=== PATIENT | male | born 1950 | race African-American/Black ===

== ENCOUNTER 2020-07-07 16:36 | Emergency (ER) | payer MEDICARE, SELFPAY ==
[2020-07-07 16:42] VITALS: BP 157/72; PULSE 43; RESP 16; TEMP 36.1; O2SAT 100
--- NOTE | 2020-07-07 16:58 | ED.CHESTPAIN ---
HPI - Chest Pain General Chief Complaint: Chest Pain Stated Complaint: chest pain Source: patient Mode of arrival: ambulatory Limitations: no limitations History of Present Illness HPI narrative: Patient is a 70-year-old male who presents complaining of intermittent chest pain over the past week. Reports episode yesterday evening and took a couple aspirin and pain subsided. Patient reports pain is stabbing in in nature and occurs in central chest. Denies pain at this time. Denies shortness of breath. Patient reports a history of hypertension, diabetes and hyperlipidemia. Patient denies swelling to extremities. Patient reports medication compliant. MD complaint: chest pain Related Data Home Medications Medication Instructions Recorded Confirmed atorvastatin 40 mg PO DAILY 07/07/20 07/07/20 glimepiride 4 mg PO DAILY 07/07/20 07/07/20 metformin 500 mg PO TID 07/07/20 07/07/20 olmesartan-hydrochlorothiazide 1 tablet PO DAILY 07/07/20 07/07/20 sitagliptin [Januvia] 100 mg PO DAILY 07/07/20 07/07/20 Allergies Allergy/AdvReac Type Severity Reaction Status Date / Time No Known Allergies Allergy Verified 07/07/20 16:47 Review of Systems Review of Systems: Narrative: CONSTITUTIONAL: Denies fever, chills, or sweats. EYES: Denies visual changes, redness, or discharge. ENT: Denies rhinorrhea, congestion, sore throat, or otalgia. CARDIOVASCULAR: Denies chest pain, palpitations, or edema. RESPIRATORY: Denies cough or dyspnea. GASTROINTESTINAL: Denies abdominal pain, nausea, vomiting, or diarrhea. GENITOURINARY: Denies dysuria or hematuria. SKIN: Denies rash or itching. MUSCULOSKELETAL: Denies back pain, joint pain, or myalgia. NEUROLOGIC: Denies headache, numbness, dizziness, or weakness. PSYCHIATRIC: Denies anxiety or depression. PMFSH Past Medical History Medical History Diabetes HTN (hypertension) Hyperlipidemia Social History Social History Smoking status: Never smoker Alcohol intake: never Substance use: never Living arrangements: with family Occupation/Education: retired Exam Narrative: Exam Narrative: GENERAL: Well-appearing, well-nourished, and in no acute distress. HEAD: Normocephalic, atraumatic. EYES: EOMI. No redness or drainage. Conjunctiva are normal. ENT: Mucous membranes pink and moist. CHEST: No respiratory distress. Clear to auscultation. HEART: Initial bradycardia, current regular rate. No murmur appreciated. Normal peripheral pulses. EXTREMITIES: Normal range of motion. No edema. SKIN: Warm, dry, no rash. NEURO: No focal deficits. Alert and oriented x3. Gait steady. PSYCH: Normal affect. No signs of depression or anxiety. Course Vital Signs Vital signs: Vital Signs Temperature 36.1 C L 07/07/20 16:42 Pulse Rate 43 L 07/07/20 16:42 Respiratory Rate 16 07/07/20 16:42 Blood Pressure 157/72 H 07/07/20 16:42 Pulse Oximetry 100 07/07/20 16:42 Temperature 36.1 C L 07/07/20 16:42 Pulse Rate 43 L 07/07/20 16:42 Respiratory Rate 16 07/07/20 16:42 Blood Pressure 157/72 H 07/07/20 16:42 Pulse Oximetry 100 07/07/20 16:42 Reviewed. Patient has been instructed to follow-up with his PCP regarding his blood pressure. Transfer Transfered to: [facility]: [facility] Transfer rationale: Higher level of care Accepting physician: Dr. Garcia Transfer comments: Transferred by EMS. MDM - Chest Pain MDM Narrative Medical decision making narrative: Patient to [facility] at this time for further evaluation and diagnostic testing. Report called. Patient to be transported by EMS. in parking lot and aware and will follow to [facility]. Patient is stable for transfer at this time by [facility] ambulance. Differential Diagnosis Differential diagnosis: Likely stable angina, unstable angina pectoris, atypical chest pain and chest pain Critical Ca
--- NOTE | 2020-07-07 17:10 | ECG_ITS ---
Measurements Intervals [place] Rate: 82 P: 46 RI: 172 QRS: -51 QRSD: 115 T: 17 QT: 378 QTc: 444 Interpretive Statements SINUS RHYTHM VENTRICULAR BIGEMINY LEFT ANTERIOR FASCICULAR BLOCK POSSIBLE LEFT VENTRICULAR HYPERTROPHY BASELINE ARTIFACT- I ABNORMAL ECG Electronically Signed On 07-07-2020 20:05:28 [employer]ELOPER [employer] by Taco Patterson D.O.
== END 2020-07-07 17:07 | disposition short-term general hospital (02) ==
PROVIDERS: Emergency Provider Nurse Practitioner; PCP Internal Medicine Endocrinology, Diabetes & Metabolism
DX: R07.9 Chest pain, unspecified (principal); I44.4 Left anterior fascicular block; E11.9 Type 2 diabetes mellitus without complications; I10 Essential (primary) hypertension; E78.5 Hyperlipidemia, unspecified
CPT/HCPCS: 93005; 99215; G0463

== ENCOUNTER 2020-07-07 17:31 | Observation (INO) | payer MEDICARE, SELFPAY ==
[2020-07-07] VITALS (8 sets, daily range): BP systolic 140–154; BP diastolic 73–100; PULSE 75–97; RESP 16–18; TEMP 36.4–36.8; O2SAT 98–100; BMI 33.7
--- NOTE | ~2020-07-07 | XR_ITS ---
XR chest 1V portable DATE: 07/07/2020 18:08 INDICATION: Right-sided chest pain. History of hypertension. TECHNIQUE: Portable upright AP chest on 07/17/2020 at 1810 hours COMPARISON: None FINDINGS: There is minimal atelectasis at the lung bases; otherwise no pulmonary infiltrate or consol idation, pleural effusion or pulmonary vascular congestion or pneumothorax is detected. Heart size is normal. No hilar or mediastinal enlargement. Degenerative spurring of the thoracic spine. IMPRESSION: Minimal atelectasis at the lung bases Reviewed, dictated and finalized at location A. [employer]K [employer]OL [employer]PERVISOR
--- NOTE | 2020-07-07 17:37 | ECG_ITS ---
Measurements Intervals [place] Rate: 84 P: 51 [place]: 197 QRS: -54 QRSD: 117 T: 31 QT: 384 QTc: 454 Interpretive Statements SINUS RHYTHM FREQUENT VENTRICULAR PREMATURE COMPLEXES LEFT ANTERIOR FASCICULAR BLOCK VOLTAGE CRITERIA FOR LVH ABNORMAL ECG Electronically Signed On 07-08-2020 7:35:08 MEDIA ASSOCIATE by Taco Patterson D.O.
--- NOTE | 2020-07-07 17:41 | ED.CHESTPAIN ---
HPI - Chest Pain General Chief Complaint: Chest Pain Stated Complaint: cp Source: RN notes reviewed History of Present Illness HPI narrative: Patient presents to emergency department via EMS from urgent care for chest pain. Patient states he had episode of chest pain yesterday that was midsternal in nature and did not radiate. Describes a pressure at that time. Patient states that he had taken an aspirin and the pain subsided he states today at work again he had an episode of chest pain in the same region. States the pain is gone at this time. He gone to an urgent care for for evaluation and was transferred to the ED for further evaluation. He denies any shortness of breath abdominal pain nausea vomiting or any other symptoms. Denies any previous cardiac history patient was given aspirin at the urgent care prior to arrival Related Data Home Medications Medication Instructions Recorded Confirmed atorvastatin 40 mg PO DAILY 07/07/20 07/07/20 glimepiride 4 mg PO DAILY 07/07/20 07/07/20 metformin 500 mg PO TID 07/07/20 07/07/20 olmesartan-hydrochlorothiazide 1 tablet PO DAILY 07/07/20 07/07/20 sitagliptin [Januvia] 100 mg PO DAILY 07/07/20 07/07/20 Allergies Allergy/AdvReac Type Severity Reaction Status Date / Time No Known Allergies Allergy Verified 07/07/20 16:47 Review of Systems Review of Systems: Narrative: Gen.: Denies fevers or chills ENT: Denies congestion Respiratory: Denies shortness of breath or cough CV: See HPI GI: Denies abdominal pain nausea, emesis or diarrhea denies burning, urgency, frequency or hematuria Musculoskeletal: Denies back pain or muscle pain Neuro: Denies numbness, tingling, weakness or focal weakness Skin: Denies rash Except as documented, all other systems reviewed and negative [facility] Past Medical History Medical History Diabetes HTN (hypertension) Hyperlipidemia Social History Social History Smoking status: Never smoker Alcohol intake: never Substance use: never Exam Narrative: Exam Narrative: APPEARANCE: No acute distress, nontoxic, resting in bed EYES: EOMI HEENT: Normocephalic, atraumatic, OMM RESPIRATORY: No respiratory distress Clear to auscultation bilaterally with no rhonchi wheezing or rales. CARDIOVASCULAR: Regular rate and rhythm without murmurs rubs or gallops. ABDOMINAL: Soft, nontender, nondistended, no rebound or guarding MUSCULOSKELETAl: Moves all extremities. No clubbing, cyanosis or edema. NEURO: Awake and alert. Following commands, speech normal, no focal deficits SKIN:: Warm, dry. No rashes lesions or abrasions PSYCHIATRIC: Normal affect/mood, Course Course Emergency Course: Patient has had no further chest pain in the ED Discussed Dr Montes presentation work-up. Agrees with consult this time. Recommends admission to the hospital service Discussed with Dr. Erazo presentation work-up agrees admission at this time Discussed with patient and family results of workup and diagnosis. Discussed need for admission. Patient and family understand and agree to current treatment plan Vital Signs Vital signs: Vital Signs Pulse Rate 82 07/07/20 17:40 Respiratory Rate 17 07/07/20 17:40 Blood Pressure 154/100 H 07/07/20 17:40 Pulse Oximetry 100 07/07/20 17:40 Temperature 98.2 F 07/07/20 18:09 Pulse Rate 80 07/07/20 18:49 Respiratory Rate 16 07/07/20 18:49 Blood Pressure 154/100 H 07/07/20 18:49 Pulse Oximetry 98 07/07/20 18:49 MDM - Chest Pain Lab Data Result diagrams: 07/07/20 17:49 07/07/20 17:49 Labs: Lab Results 07/07/20 07/07/20 07/07/20 Range/Units 17:49 17:49 17:49 WBC 4.8 (4.5-10.0) K/mm3 RBC 4.55 L (4.6-6.20) M/mm3 Hgb 11.4 L (14.0-18.0) g/dL Hct 36.4 L (42.0-52.0) % MCV 80.0 (80-100) fl MCH 25.1 L (26-34) pg MCHC 31.3 L
[2020-07-07 17:57] LABS: Basophils Percent Auto 0.8 % (0.2-1.2); Eosinophils Absolute Auto 0.2 K/mm3 (0-0.3); Eosinophils Percent Auto 3.1 % (0-4.4); Hematocrit 36.4 % (42.0-52.0); Hemoglobin 11.4 g/dL (14.0-18.0); Immature Granulocyte Absolute 0.01 K/mm3 (0.00-0.031); Immature Granulocyte Percent A 0.2 % (0-0.5); Lymphocytes Absolute Auto 1.69 K/mm3 (0.9-3.2); Lymphocytes Percent Auto 35.3 % (18.3-44.2); Mean Corpuscular HGB Conc 31.3 g/dl (32-36); Mean Corpuscular Hemoglobin 25.1 pg (26-34); Mean Platelet Volume 10.4 fl (7.4-10.4); Monocytes Absolute Auto 0.5 K/mm3 (0.1-0.6); Monocytes Percent Auto 10.9 % (2.6-8.5); Neutrophils Absolute Auto 2.4 K/mm3 (1.3-6.7); Neutrophils Percent Auto 49.7 % (45.5-73.1); Platelet Count Result 235 k/mm3 (150-375); Red Blood Count 4.55 M/mm3 (4.6-6.20); White Blood Count 4.8 K/mm3 (4.5-10.0)
[2020-07-07 18:08] LABS: Partial Thromboplastin Time 27.1 SECONDS (22.3-36.8)
[2020-07-07 18:10] LABS: Alanine Aminotransferase 19 U/L (4-50); Albumin Level 4.1 g/dL (3.5-5.1); Alkaline Phosphatase 76 U/L (38-126); Anion Gap 8 mmol/L (8-16); Aspartate Amino Transferase 26 U/L (17-59); Bilirubin,Total 0.3 mg/dL (0.2-1.3); Blood Urea Nitrogen 23 mg/dL (9-20); Calcium 9.7 mg/dL (8.4-10.2); Carbon Dioxide 28 mmol/L (22-30); Chloride 103 mmol/L (98-107); Estimated Glomerular Filt Rate > 60; Glucose 157 mg/dL (75-110); Lipase 181 U/L (23-300); Sodium 139 mmol/L (137-145)
[2020-07-07 18:12] LABS: INR 0.9; Prothrombin Time 12.4 Seconds (11.1-14.7)
[2020-07-07 18:22] LABS: Troponin I 0.013 ng/mL (0.000-0.034)
[2020-07-07 21:03] LABS: Troponin I 0.016 ng/mL (0.000-0.034)
--- NOTE | 2020-07-07 21:49 | PM.IMHP ---
H&P: HPI History of Present Illness Date/Time: 07/07/20 21:49 Chief complaint: chest pain, PVC Narrative: This is a pleasant Diabetic 70 year old male with known history of HTN and hyperlipidemia who presented to the hospital with a complaint of intermittent right sided chest pain since yesterday. Yesterday he was sitting when he started to have sharp right sided chest pain that lasted only about 10 minutes in duration. Today he ate tuna fish and approximately 30 minutes later he began to have the same right sided chest pain while he was watching television. His chest pain did not radiate anywhere and lasted approximately 5 minutes in duration. The patient is not known to have any history of coronary artery disease. He also denies any fevers, chills, nausea, shortness of breath or diaphoresis. The patient was evaluated in the ER and routine labs were obtained. Troponin has been negative x 2 and EKG demonstrated Bigeminy which is new to the patient. Electrolytes appear within normal limits. ER provider has consulted Cardiology, Dr. Khan who has asked that we admit the patient and he will evaluate him tomorrow. The patient has not had any recurrence of chest pain and has no other complaints at this time. Review of Systems Review of Systems: All systems reviewed & are unremarkable except as noted in HPI and below PMFSH Past Medical History Medical History Diabetes HTN (hypertension) Hyperlipidemia Family History Family History Other Acute myocardial infarction Social History Social History Smoking status: Never smoker Alcohol intake: never Substance use: never Comments History of left ankle surgery after a fracture. Meds Home Medications and Allergies Home Medications Medication Instructions Recorded Confirmed Type aspirin [Adult Low Dose Aspirin] 81 mg PO DAILY 07/07/20 07/07/20 History atorvastatin 40 mg PO DAILY 07/07/20 07/07/20 History glimepiride 4 mg PO DAILY 07/07/20 07/07/20 History metformin 500 mg PO TID 07/07/20 07/07/20 History olmesartan-hydrochlorothiazide 1 tablet PO DAILY 07/07/20 07/07/20 History sitagliptin [Januvia] 100 mg PO DAILY 07/07/20 07/07/20 History Allergies Allergy/AdvReac Type Severity Reaction Status Date / Time No Known Allergies Allergy Verified 07/07/20 16:47 Vital Signs Vital Signs - 24 hr 07/07/20 17:40 07/07/20 18:09 07/07/20 18:49 Temperature 36.8 C Pulse Rate 82 75 80 Respiratory Rate 17 18 16 Blood Pressure 154/100 H 154/100 H Pulse Oximetry 100 98 98 07/07/20 20:55 07/07/20 21:20 Temperature 36.4 C Pulse Rate 80 97 Respiratory Rate 18 18 Blood Pressure 143/73 H Pulse Oximetry 98 100 Exam Const: General: cooperative, no acute distress, alert and awake Nutritional Appearance: obese morbidly obese Orientation/consciousness: patient oriented x3 HENMT: Head: normal to inspection General nose exam: Normal external nose present Face and sinus: normal facial exam Mouth: Yes Normal oral and palatal mucosa present and Yes oropharynx normal Eyes: Pupils: Equal, round and reactive pupils present EOM: EOMs intact bilaterally Neck: Neck: supple and no JVD Thyroid: thyroid normal Lymphatic: lymphadenopathy not noted Resp: Effort & Inspection: normal respiratory effort Auscultation: clear to auscultation bilaterally Cardio: Rate: regular rate Rhythm: regular rhythm Heart sounds: no murmurs GI: Inspection: normal to inspection Auscultation: normal bowel sounds Skin: General skin exam: normal color and no rashes or lesions noted Neuro: General: patient oriented x3 Cranial nerves: Yes CN's II-XII intact bilaterally and Yes Equal, round and reactive pupils present Speech: normal speech Motor exam (neuro): 5/5 motor strength present throughout Sensory Exam
--- NOTE | 2020-07-07 21:59 | ADMGEN ---
This patient, Yimi Ramires, was admitted to IMU Room 213-01. Patient/family oriented to hospital policies and general routines including ID bracelet, bed and alarms, visiting hours, pain management, procedures, bathroom and other care routines, personal items, smoking policy, room service/diet, and visiting hours. Information on how to activate the Rapid Response Team has been discussed. Patient/Family are encouraged to report perceived risks to care and to ask questions if they do not understand what they are told or what they should do.
[2020-07-08 00:09] LABS: Troponin I 0.015 ng/mL (0.000-0.034)
[2020-07-08 02:00] VITALS: PULSE 78
[2020-07-08 04:00] VITALS: BP 135/78; PULSE 79; PULSE 89; RESP 20; TEMP 36.5; O2SAT 97
[2020-07-08 04:59] LABS: Basophils Percent Auto 0.5 % (0.2-1.2); Eosinophils Absolute Auto 0.2 K/mm3 (0-0.3); Hematocrit 33.1 % (42.0-52.0); Hemoglobin 10.2 g/dL (14.0-18.0); Immature Granulocyte Absolute 0.01 K/mm3 (0.00-0.031); Immature Granulocyte Percent A 0.2 % (0-0.5); Lymphocytes Percent Auto 30.4 % (18.3-44.2); Mean Corpuscular HGB Conc 30.8 g/dl (32-36); Mean Corpuscular Hemoglobin 24.8 pg (26-34); Mean Corpuscular Volume 80.5 fl (80-100); Mean Platelet Volume 10.3 fl (7.4-10.4); Monocytes Absolute Auto 0.5 K/mm3 (0.1-0.6); Monocytes Percent Auto 11.2 % (2.6-8.5); Neutrophils Absolute Auto 2.3 K/mm3 (1.3-6.7); Neutrophils Percent Auto 53.7 % (45.5-73.1); Platelet Count Result 203 k/mm3 (150-375); Red Blood Count 4.11 M/mm3 (4.6-6.20); Red Cell Distribution Width 16.8 % (11.5-14.5); White Blood Count 4.3 K/mm3 (4.5-10.0)
[2020-07-08 05:15] LABS: Anion Gap 5 mmol/L (8-16); Blood Urea Nitrogen 19 mg/dL (9-20); Calcium 8.8 mg/dL (8.4-10.2); Carbon Dioxide 29 mmol/L (22-30); Chloride 105 mmol/L (98-107); Cholesterol 137 mg/dL (0-200); Estimated CRCL calculation 68 ml/min; Estimated Glomerular Filt Rate > 60; Glucose 121 mg/dL (75-110); HDL Direct 24 mg/dL; Potassium 3.9 mmol/L (3.4-5.0); Sodium 139 mmol/L (137-145); Triglycerides 119 mg/dL (<150)
[2020-07-08 05:26] LABS: LDL Cholesterol Direct 66 mg/dL
[2020-07-08 06:00] VITALS: PULSE 81
[2020-07-08 07:27] VITALS: BP 128/77; PULSE 76; RESP 18; TEMP 36.6; O2SAT 99
[2020-07-08 08:00] VITALS: PULSE 76; PULSE 86; RESP 18; O2SAT 99
--- NOTE | 2020-07-08 09:10 | PM.CNCAR ---
Assessment and Plan Assessment and plan (1) Chest pain: Qualifiers: Chest pain type: unspecified Qualified Code(s): R07.9 - Chest pain, unspecified Code(s): R07.9 - Chest pain, unspecified Status: Acute Assessment and Plan: 70 y/o with no known cardiac history but multiple cardiovascular risk factors who presents with chest pain Chest pain is atypical for angina He ruled out for LA with negative trop and EKG that shows no ischemic changes (frequent PVCs noted) Given risk factors he will benefit from stress test for risk stratification. Will arrange for that in outpatient settings He is stable for discharge from cardiac standpoint. (2) Frequent unifocal PVCs: Code(s): I49.3 - Ventricular premature depolarization Status: Acute Assessment and Plan: He is asymptomatic from PVCs. Electrolytes within normal limits (K 4.0, Mg 2.0). Check TSH if not done recently. Check 2D echo to rule out structural heart disease. That also can be arrange in outpatient settings per patient wishes (concerned about staying in the hospital during pandemic) (3) HTN (hypertension): Qualifiers: Hypertension type: unspecified Qualified Code(s): I10 - Essential (primary) hypertension Code(s): I10 - Essential (primary) hypertension Status: Chronic Assessment and Plan: Well controlled (4) Diabetes: Qualifiers: Diabetes mellitus type: type 2 Diabetes mellitus detention insulin use: without detention use Diabetes mellitus complication status: without complication Qualified Code(s): E11.9 - Type 2 diabetes mellitus without complications Code(s): E11.9 - Type 2 diabetes mellitus without complications Status: Chronic History of Present Illness History of Present Illness Consult date/time: 07/08/20 09:10 70 y/o male with no known cardiac history however multiple cardiovascular risk factors including HTN, DM (since ~2002) and HLD who presented with chest pain He had 2 episodes of chest pain, one on Tuesday, right side of chest with no radiation, sharp,happened while sitting watching TV, lasted for 10 minutes then another similar episode yesterday around 4:00 pm, also non exertional and lasted for 5 minutes. Both episode happened after he had eaten (canned tuna). No associated dyspnea, nausea, diaphoresis or dizziness. EKG shows sinus rhythm with frequent PVCs, occasionally in Bigeminy or trigeminy Trop negative 0.01 X 3. other labs shows LDL 66. Cr 1.0 Never smoker. Denies alcohol use Reason For Visit: chest pain, PVC Review of Systems Review of Systems: All systems reviewed & are unremarkable except as noted in HPI and below Constitutional: Constitutional: Denies fatigue and Denies headache(s) Eyes: Eyes: Denies blurry vision ENT: Reports Normal hearing present and Denies headache(s) Cardiovascular: Cardiovascular: Denies chest pain, Denies diaphoresis, Denies pedal edema, Denies leg edema, Denies lightheadedness, Denies palpitations and Denies dyspnea Respiratory: Respiratory: Denies cough and Denies dyspnea Gastrointestinal: Gastrointestinal: Denies abdominal pain Musculoskeletal: Musculoskeletal: Denies back pain Neurologic: Reports Normal hearing present and Denies headache(s) Psychiatric: Psychiatric: Denies anxiety Endocrine: Endocrine: Denies fatigue and Denies palpitations PMFSH Past Medical History Medical History Diabetes HTN (hypertension) Hyperlipidemia Family History Family History Other Acute myocardial infarction Social History Social History Smoking status: Never smoker Alcohol intake: never Substance use: never Substance use type: does not use Spiritual care concerns: No Meds Home Medications and Allergies Home Medications M
[2020-07-08] MEDS: ASPIRIN 81 MG ENTERIC TABLET PO (09:42)
[2020-07-08] MEDS: ATORVASTATIN 40 MG TABLET PO (09:42)
[2020-07-08] MEDS: OLMESARTAN MEDOXOMIL 20 MG TABLET 40 MG PO (09:43)
[2020-07-08] MEDS: hydroCHLOROthiazide 25 MG TABLET PO (09:43)
--- NOTE | 2020-07-08 10:02 | PM.DS ---
DS: Admitting Diagnosis Admitting Diagnosis Admitting Diagnosis: chest pain, PVC DS: Discharge Diagnosis Discharge Diagnosis (1) Chest pain: Qualifiers: Chest pain type: unspecified Qualified Code(s): R07.9 - Chest pain, unspecified Code(s): R07.9 - Chest pain, unspecified Status: Acute Assessment and Plan: Patient had atypical CP. He was admitted for observation. CXR showing minimal atelectasis in the lung bases. EKG showing LVH, LAFB and vent bigeminy. Trop negative x3. Cardiology consulted. Patient monitored overnight on telemetry. No further CP. He was NPO overnight. Sesarmary concerned about prolonged stay and exposure to COVID. Discussed with cardiology who as already planned for patient to be discharged for further workup as outpatient. Luca agreeable with this plan. He was advised to return to the ED or call cardiologists office if having any further chest pain or other concerns. He voices understanding. Spoke with patient afterwards and explained that it is safe to contiue his ASA. (2) Normocytic anemia: Code(s): D64.9 - Anemia, unspecified Status: Acute Assessment and Plan: Hgb 11.4 on admission and dropped to 10.2. Acute versus chronic anemia. No signs of acute blood loss. Will have patient follow up with PCP for further evaluation and treatment. (3) Diabetes: Qualifiers: Diabetes mellitus complication status: without complication Diabetes mellitus leveler helper insulin use: without leveler helper use Diabetes mellitus type: type 2 Qualified Code(s): E11.9 - Type 2 diabetes mellitus without complications Code(s): E11.9 - Type 2 diabetes mellitus without complications Status: Chronic Assessment and Plan: Glucose remained well controlled. We monitored with Accu-Cheks and sliding scale insulin coverage. Hypoglycemia protocol was available as needed. Last A1c 6.9. (4) HTN (hypertension): Qualifiers: Hypertension type: unspecified Qualified Code(s): I10 - Essential (primary) hypertension Code(s): I10 - Essential (primary) hypertension Status: Chronic Assessment and Plan: BP elevated on admission to 154/100 but better now. We continued Olmesartan/hydrochlorothiazide. (5) Hyperlipidemia: Qualifiers: Hyperlipidemia type: unspecified Qualified Code(s): E78.5 - Hyperlipidemia, unspecified Code(s): E78.5 - Hyperlipidemia, unspecified Status: Chronic Assessment and Plan: LFTs normal. LDL 66. We continued atorvastatin. DS: Summary Hospital Course Reason for hospitalization: 70yo male with DM, HTN and HLD here for atypical CP. Please se H&P for details. Hospital Course: As above. Status at Discharge Cognitive/behavioral status at discharge: PATIENT IS CLINICALLY STABLE Time Spent with Patient Time attestation: Total time spent providing and/or coordinating discharge services: 32 minutes Time spent: Greater than 30 minutes Exam Narrative: Exam Narrative: AF 97.8 128/77 76 18 99% ra Gen - NARD Chest - CTA bilaterally, nml RR CV - RRR S1/S2; Tele bigeminy Abd - Soft, NT/ND, Positive BS Ext - No pedal edema, 2+ PT Psych - Nml mood and affect Skin - Warm and dry DS: Data Data Completed and Pending Labs on day of discharge: Labs from last 24 hours 07/08/20 07/08/20 07/07/20 04:38 04:38 22:58 WBC 4.3 L RBC 4.11 L Hgb 10.2 L Hct 33.1 L MCV 80.5 MCH 24.8 L MCHC 30.8 L RDW 16.8 H Plt Count 203 MPV 10.3 Immature Gran % (Auto) 0.2 Neut % (Auto) 53.7 Lymph % (Auto) 30.4 Clare % (Auto) 11.2 H Eos % (Auto) 4.0 Baso % (Auto) 0.5 Lymph # (Auto) 1.30 [place] # (Auto) 0.5 Eos # (Auto) 0.2 Baso # (Auto) 0.0 Abs Immat Gran (auto) 0.01 Absolute Neuts (auto) 2.3 Absolute Nucleated RBC 0.0 Nucleated RBC % 0.0 PT INR APTT Sodium 139 Potassium 3.9
== END 2020-07-08 11:35 | disposition home or self-care (01) ==
LOC: ANHED 19:55 → ANHIMU 20:27
PROVIDERS: Admitting Provider Family Medicine; Emergency Provider Emergency Medicine; PCP Internal Medicine Endocrinology, Diabetes & Metabolism; Visit Provider Internal Medicine
DX: R07.9 Chest pain, unspecified (principal); D64.9 Anemia, unspecified; E11.9 Type 2 diabetes mellitus without complications; I10 Essential (primary) hypertension; E78.5 Hyperlipidemia, unspecified; I49.3 Ventricular premature depolarization; R94.31 Abnormal electrocardiogram [ECG] [EKG]; J98.11 Atelectasis; Z79.84 Long term (current) use of oral hypoglycemic drugs
CPT/HCPCS: 36415; 71045; 80048; 80053; 80061; 83690; 83735; 84484; 85025; 85610; 85730; 93005; 99285; A9270; G0378

== ENCOUNTER 2020-07-15 06:42 | Outpatient (CLI) | payer MEDICARE, SELFPAY ==
[2020-07-15 07:39] LABS: Basophils Percent Auto 0.9 % (0.2-1.2); Eosinophils Absolute Auto 0.2 K/mm3 (0-0.3); Eosinophils Percent Auto 4.3 % (0-4.4); Hematocrit 37.7 % (42.0-52.0); Hemoglobin 11.7 g/dL (14.0-18.0); Lymphocytes Absolute Auto 1.25 K/mm3 (0.9-3.2); Lymphocytes Percent Auto 35.5 % (18.3-44.2); Mean Corpuscular Hemoglobin 25.2 pg (26-34); Mean Corpuscular Volume 81.1 fl (80-100); Mean Platelet Volume 10.8 fl (7.4-10.4); Monocytes Absolute Auto 0.4 K/mm3 (0.1-0.6); Monocytes Percent Auto 11.4 % (2.6-8.5); Neutrophils Absolute Auto 1.7 K/mm3 (1.3-6.7); Neutrophils Percent Auto 47.9 % (45.5-73.1); Platelet Count Result 240 k/mm3 (150-375); Red Blood Count 4.65 M/mm3 (4.6-6.20); White Blood Count 3.5 K/mm3 (4.5-10.0)
[2020-07-15 08:10] LABS: Iron 80 ug/dL (49-181)
[2020-07-15 08:19] LABS: Percent Iron Saturation 19 % (20-50)
[2020-07-15 08:56] LABS: Folic Acid 13.4 ng/mL (2.76->20)
== END 2020-07-15 06:43 | disposition home or self-care (01) ==
PROVIDERS: PCP Internal Medicine Endocrinology, Diabetes & Metabolism; Visit Provider Internal Medicine
DX: D64.9 Anemia, unspecified (principal)
CPT/HCPCS: 36415; 82607; 82746; 83540; 83550; 85025